=== PATIENT | female | born 2000 | race Caucasian/White ===

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

== ENCOUNTER 2020-03-26 12:16 | Day surgery (SDC) | payer OTHER ==
[~2020-03-26 12:16] MED LIST changes: +Bupivacaine 0.5% 30 ML SDV ONE; +Clindamycin Phosphate in D5W 600 MG in Premix Bag 1 BAG IV ONE; +Midazolam 1 MG/ML 2 ML SDV ONE; +Propofol 200 MG/20 ML SDV ONE; +ceFAZolin 1 GM Vial ONE; +fentaNYL 100 MCG/2 ML SDV ONE
[2020-03-26] MEDS ORDERED: Clindamycin Phosphate in D5W 50 ML ONE (12:35)
--- NOTE | 2020-03-26 12:38 | PCM.PREANE ---
Preanesthetic Assessment - Anesthesia/Transfusion/Family Hx Anesthesia History: Prior Anesthesia Without Reaction Other Type of Anesthesia Reaction Comment: "dad had problems breathing after his gallbladder surgery" Family History of Anesthesia Reaction: No Transfusion History: Prior Transfusion Without Reaction - Review of Systems General: No Symptoms Pulmonary: No Symptoms Cardiovascular: No Symptoms Gastrointestinal: No Symptoms Neurological: No Symptoms Other: Reports: None - Physical Assessment NPO Status Date: 03/25/20 Height: 5 ft 3 in Weight: 117.934 kg ASA Class: 2 Mental Status: Alert & Oriented x3 Airway Class: Mallampati = 3 Dentition: Reports: Normal Dentition ROM/Head Extension: Full Lungs: Clear to Auscultation, Normal Respiratory Effort Cardiovascular: Regular Rate, Regular Rhythm - Lab Values: Laboratory Last Values Urine HCG, Qual NEGATIVE (NEGATIVE) 03/26/20 10:45 SARS-CoV-2 RNA (PAT) NEGATIVE (NEGATIVE) 03/26/20 10:45 - Allergies Allergies/Adverse Reactions: Allergies Allergy/AdvReac Type Severity Reaction Status Date / Time Penicillins Allergy Hives Verified 03/26/20 10:28 - Blood Blood Available: No - Anesthesia Plan Pre-Op Medication Ordered: None - Acknowledgements Anesthesia Type Planned: General Anesthesia Pt an Appropriate Candidate for the Planned Anesthesia: Yes Alternatives and Risks of Anesthesia Discussed w Pt/Guardian: Yes Pt/Guardian Understands and Agrees with Anesthesia Plan: Yes Additional Comments: PMH: mo with bmi of 46, asthma- inactive x 1 yr plan: ga/lma PreAnesthesia Questionnaire - Past Health History Medical/Surgical History: Denies Medical/Surgical History HEENT History: Reports: Impaired Vision Other HEENT History: wears glasses Cardiovascular History: Reports: Arrhythmia, Other (See Below) Other Cardiovascular History: ventricular tachycardia; states had a heart monitor implanted under left breast 2013; states has not had any issues with heart for past 5 years Respiratory History: Reports: Asthma Gastrointestinal History: Reports: None Genitourinary History: Reports: None CORPORATE STRATEGIST History: Reports: Musculoskeletal History: Reports: None Neurological History: Reports: None Psychiatric History: Reports: ADHD Endocrine/Metabolic History: Reports: Obesity/BMI 30+ Hematologic History: Reports: None Immunologic History: Reports: None Oncologic (Cancer) History: Reports: None Dermatologic History: Reports: None - Infectious Disease History Infectious Disease History: Reports: None - Past Surgical History Head Surgeries/Procedures: Reports: None HEENT Surgical History: Reports: Adenoidectomy, Myringotomy w Tube(s), Naso- Sinus Surgery, Tonsillectomy Cardiovascular Surgical History: Reports: Other (See Below) Other Cardiovascular Surgeries/Procedures: implanted heart monitor Respiratory Surgical History: Reports: None GI Surgical History: Reports: None Female Surgical History: Reports: None Endocrine Surgical History: Reports: None Neurological Surgical History: Reports: None Musculoskeletal Surgical History: Reports: None Oncologic Surgical History: Reports: None Dermatological Surgical History: Reports: None - SUBSTANCE USE Tobacco Use Status *Q: Never Tobacco User - HOME MEDS Home Medications: Home Meds medroxyPROGESTERone [Depo-Provera Contraceptive] 1 injection IM ASDIRECTED 04/11/19 [History] Albuterol [Proair HFA] 1 - 2 puff INH ASDIRECTED PRN 09/26/19 [History] Antibiotic Med 1 tab PO Q6HR 03/26/20 [History] - CURRENT (IN HOUSE) MEDS Current Meds: Current Medications Lactated Ringer's (Ringers, Lactated) 1,000 mls @ 125 mls/hr IV ASDIRECTED EITAN Sodium Chloride (Saline Flush) 10 ml FLUSH ASDIRECTED PRN PRN Reason: Keep Vein Open Sodium Chloride (Saline Flush) 2.5 ml FLUSH ASDIRECTED PRN PRN Reason: Keep Vein Open Sodium Chloride (Normal Saline) 10 ml IV ASDIRECTED PRN PRN Reason: IV Use Discontinued Medications Bupivacaine HCl (Marcaine 0.5%) Confirm Administered Dose 30 ml .ROUTE .STK-MED ONE Stop: 03/26/20 11:53 Cefazolin Sodium (Ancef) Confirm Administered Dose 1 gm .ROUTE .STK-MED ONE Stop: 03/26/20 11:52 Fentanyl (Sublimaze) Confirm Administered Dose 100 mcg .ROUTE .STK-MED ONE Stop: 03/26/20 12:04 Clindamycin Phosphate 600 mg/ (Premix) 50 mls @ 100 mls/hr IV ONETIME ONE Stop: 03/26/20 12:07 Acetaminophen (Ofirmev) Confirm Administered Dose 100 mls @ as directed .ROUTE .STK-MED ONE Stop: 03/26/20 12:20 Clindamycin Phosphate (Cleocin In D5w) Confirm Administered Dose 50 mls @ as directed .ROUTE .STK-MED ONE Stop: 03/26/20 12:36 Lidocaine HCl (Xylocaine-Mpf 1%) Confirm Administered Dose 5 ml .ROUTE .STK-MED ONE Stop: 03/26/20 12:05 Midazolam HCl (Versed 1 Mg/Ml) Confirm Administered Dose 2 mg .ROUTE .STK-MED ONE Stop: 03/26/20 12:05 Propofol (Diprivan 20 Ml) Confirm Administered Dose 200 mg .ROUTE .STK-MED ONE Stop: 03/26/20 12:04
[2020-03-26] MEDS ORDERED: Ondansetron 4 MG/2 ML SDV ONE ×2 (13:03)
[2020-03-26] MEDS ORDERED: Dexamethasone 4 MG/ML 5 ML MDV ONE (13:03)
[2020-03-26] MEDS ORDERED: fentaNYL 100 MCG/2 ML SDV ONE (13:06)
[2020-03-26] MEDS ORDERED: EPINEPHrine 1:10,000 1 MG/10 ML Syringe IVPUSH PRN (13:15)
[2020-03-26] MEDS ORDERED: Albuterol 0.083% 2.5 MG/3 ML Neb Soln NEB PRN (13:15)
[2020-03-26] MEDS ORDERED: Naloxone 0.4 MG/ML Syringe IVPUSH PRN (13:15)
[2020-03-26] MEDS ORDERED: Ondansetron 4 MG/2 ML SDV IVPUSH PRN (13:15)
[2020-03-26] MEDS ORDERED: 50% Dextrose in Water 50 ML Syringe IVPUSH PRN (13:15)
[2020-03-26] MEDS ORDERED: Atropine 0.1 MG/ML 10 ML Syringe IVPUSH PRN ×2 (13:15)
[2020-03-26] MEDS ORDERED: fentaNYL 100 MCG/2 ML SDV IVPUSH PRN (13:15)
--- NOTE | 2020-03-26 13:25 | PCM.OPNOTE ---
- General Post-Op/Procedure Note Date of Surgery/Procedure: 03/26/20 Operative Procedure(s): Incision and drainage right breast abscess Findings: 3 x 3 x 3 cm abscess under the right nipple Pre Op Diagnosis: Right breast abscess Post-Op Diagnosis: same Anesthesia Technique: General LMA, Local Primary Surgeon: Vicky Rivas Fluid Replacement, Intraop: 400 EBL in mLs: 5 Condition: Good
[2020-03-26] MEDS: HYDROmorphone 2 MG/ML Syringe IVPUSH PRN ×2 (13:47→13:52)
--- NOTE | 2020-03-26 14:21 | PCM.POSTAN ---
POST ANESTHESIA ASSESSMENT - MENTAL STATUS Mental Status: Alert - VITAL SIGNS Vital Signs: Last Vital Signs Temp 37.2 C 03/26/20 13:19 Pulse 82 03/26/20 13:59 Resp 21 H 03/26/20 13:59 BP 117/81 03/26/20 13:59 Pulse Ox 95 03/26/20 13:59 - RESPIRATORY Respiratory Status: Respiratory Rate WNL - CARDIOVASCULAR CV Status: Pulse Rate WNL - GASTROINTESTINAL GI Status: No Symptoms - POST OP HYDRATION Hydration Status: Adequate & Stable
[2020-03-26] MEDS ORDERED: Acetaminophen/oxyCODONE 325-5 MG Tab PO ONE (14:29)
--- NOTE | 2020-03-26 14:54 | PCM48HPAN ---
Post Anesthesia Note - EVALUATION WITHIN 48HRS OF ANESTHETIC Vital Signs in Normal Range: Yes Patient Participated in Evaluation: Yes Respiratory Function Stable: Yes Airway Patent: Yes Cardiovascular Function Stable: Yes Hydration Status Stable: Yes Pain Control Satisfactory: Yes Nausea and Vomiting Control Satisfactory: Yes Mental Status Recovered: Yes Vital Signs: Last Vital Signs Temp 37.2 C 03/26/20 13:19 Pulse 82 03/26/20 13:59 Resp 21 H 03/26/20 13:59 BP 117/81 03/26/20 13:59 Pulse Ox 95 03/26/20 13:59
[2020-03-26 15:46] VITALS: BP 136/80; PULSE 83
--- NOTE | 2020-03-26 16:01 | OR ---
SURGEON: VICKY RIVAS MD DATE OF PROCEDURE: 03/26/2020 PREOPERATIVE DIAGNOSIS: Right breast abscess. POSTOPERATIVE DIAGNOSIS: Right breast abscess. PROCEDURE PERFORMED: Incision and drainage, right breast abscess. PRIMARY SURGEON: Vicky Rivas MD ANESTHESIA: General LMA, local. FLUIDS: 400 mL of crystalloid. ESTIMATED BLOOD LOSS: 5 mL. FINDINGS: 3 x 3 x 3 cm subareolar abscess. COMPLICATIONS: None. INDICATIONS: The patient presented to my clinic this morning with complaints of a right breast abscess. She has nipple piercings. Tuesday, she developed pain, swelling, and tenderness. She presented to her primary care provider's office yesterday with fever and increasing pain. Ultrasound showed an abscess behind the nipple and an elevated white count. After clinical examination, I explained the need to perform an incision and drainage of this abscess in the operating room given its location. I explained to the patient how I would make an incision along the areolar skin border and tunnel underneath to where the abscess was located. I explained the need for dressing changes afterwards. We discussed the risks including bleeding, infection, or damage to surrounding structures including alteration of sensation to the nipple. She verbalized understanding and wishes to proceed. PROCEDURE IN DETAIL: The patient was brought into the OR and placed on the OR table in supine position. A time-out was completed verifying the patient's name, age, date of , allergies, and procedure to be performed. General LMA anesthesia was induced. The right breast was prepped and draped in usual standard fashion. I anesthetized the inferior areolar border with 0.5% Marcaine plain. I could feel a fluctuant area underneath the nipple. The majority of the swelling appeared to be between the 6 and 9 o'clock position. A 15 blade was used to make an incision along this area. I then used cautery to dissect down to the level of the breast tissue itself. Retractors were then used to lift the areola, and I dissected between the breast tissue and the areola toward the center of the breast. Using an aspiration needle attached to a 30 mL syringe, I aspirated white purulent appearing material directly underneath the nipple. This was sent for wound cultures and Gram stain. I then entered into the abscess cavity itself. A hemostat was used to break up any loculations. I opened up the abscess cavity and irrigated it copiously with normal saline. The wound cavity measured 3 cm in diameter. The wound was then packed with 1 inch iodoform packing strip and covered with 4 x 4 fluffs, which were secured in place using a tape. The patient tolerated the procedure well and was transferred to the PACU in stable condition. All counts were complete and correct at the end of the case. LYSSA SUTHERLAND /[id number]
== END 2020-03-26 15:10 | disposition home or self-care (01) ==
LOC: MW.SDS 12:16
PROVIDERS: ATTEND Surgery
DX: N61.1 Abscess of the breast and nipple (principal); Z01.812 Encounter for preprocedural laboratory examination; Z20.828 Contact with and (suspected) exposure to other viral communicable diseases; Z88.0 Allergy status to penicillin; E66.9 Obesity, unspecified; Z79.899 Other long term (current) drug therapy; Z68.42 Body mass index [BMI] 45.0-49.9, adult
CPT/HCPCS: 19020; 81025; 87070; 87635; A9270; J0131; J1100; J1170; J2001; J2250; J2704; J3490; J7120; 00400; 87077; 87186; J0690; J2405; J3010; U0002

== ENCOUNTER 2021-07-19 18:32 | Emergency (ER) | payer BC ==
[2021-07-19] MEDS ORDERED: Albuterol/Ipratropium 3.0-0.5 MG/3 ML Neb Soln NEB ONE ×3 (19:19)
[2021-07-19] MEDS ORDERED: predniSONE 20 MG Tab PO ONE (19:20)
[2021-07-19] MEDS ORDERED: Doxycycline 100 MG Cap PO STA (20:20)
[2021-07-19] MEDS ORDERED: Amoxicillin/Clavulanate K 875-125 MG Tab PO STA (20:20)
[2021-07-19 20:36] VITALS: BP 135/75; PULSE 82
== END 2021-07-19 20:34 | disposition home or self-care (01) ==
LOC: MW.ED 18:32
DX: J45.901 Unspecified asthma with (acute) exacerbation (principal); J18.9 Pneumonia, unspecified organism; H66.92 Otitis media, unspecified, left ear; E66.9 Obesity, unspecified; Z68.30 Body mass index [BMI] 30.0-30.9, adult; Z88.0 Allergy status to penicillin
CPT/HCPCS: 71045; 99285; A9270; 99284; J7620-GY

== ENCOUNTER 2021-08-20 09:43 | Emergency (ER) | payer BC ==
[2021-08-20] MEDS ORDERED: Sodium Chloride 0.9% 2.5 ML Syringe FLUSH PRN (10:24)
[2021-08-20] MEDS ORDERED: Ondansetron 4 MG/2 ML SDV IVPUSH ONE (10:24)
[2021-08-20] MEDS ORDERED: Sodium Chloride 0.9% 1,000 ML IV ONE (10:24)
[2021-08-20] MEDS ORDERED: Sodium Chloride 0.9% 10 ML Syringe FLUSH PRN (10:24)
[2021-08-20] MEDS ORDERED: HYDROmorphone 1 MG/ML Syringe IVPUSH ONE ×2 (10:25→11:14)
[2021-08-20 11:26] LABS: BLOOD UREA NITROGEN,BUN 11 mg/dL (7.0-18.0); CARBON DIOXIDE,CO2 22.1 mmol/L (21.0-32.0); CHLORIDE,CL 105 mmol/L (98-107); GLUCOSE RANDOM 98 mg/dL (74-106); LIPASE 72 U/L (73-393); POTASSIUM,K 3.6 mmol/L (3.5-5.1); SODIUM,NA 139 mmol/L (136-145)
[2021-08-20] MEDS ORDERED: Iopamidol 755 MG/ML 500 ML Multipack Bottle IVPUSH STA (11:52)
[2021-08-20] MEDS ORDERED: Ketorolac 30 MG/ML SDV IVPUSH ONE (12:03)
[2021-08-20] MEDS ORDERED: Tamsulosin 0.4 MG Cap.ER PO ONE (13:00)
[2021-08-20 13:35] VITALS: BP 142/93; PULSE 92
== END 2021-08-20 13:34 | disposition home or self-care (01) ==
LOC: MW.ED 09:43
DX: N13.2 Hydronephrosis with renal and ureteral calculous obstruction (principal); J45.909 Unspecified asthma, uncomplicated; F17.210 Nicotine dependence, cigarettes, uncomplicated; E66.9 Obesity, unspecified; Z68.41 Body mass index [BMI] 40.0-44.9, adult; Z79.899 Other long term (current) drug therapy; Z88.0 Allergy status to penicillin
CPT/HCPCS: 36415; 74177; 80053; 83690; 84703; 85025; 96374; 96375; 96376; 99284; A9270; J1170; J1885; J2405; J3490; J7030; Q9967

== ENCOUNTER 2023-03-10 22:36 | Emergency (ER) | payer BC ==
[2023-03-10] MEDS ORDERED: Ibuprofen 600 MG Tab PO ONE (22:54)
[2023-03-10] MEDS ORDERED: Cyclobenzaprine 10 MG Tab PO ONE (22:54)
[2023-03-10 22:56] VITALS: BP 143/82; PULSE 89
== END 2023-03-10 23:04 | disposition home or self-care (01) ==
LOC: MW.ED 22:36
DX: S09.90XA Unspecified injury of head, initial encounter (principal); M25.552 Pain in left hip; M79.652 Pain in left thigh; M25.531 Pain in right wrist; M25.532 Pain in left wrist; J45.909 Unspecified asthma, uncomplicated; E66.9 Obesity, unspecified; Z68.41 Body mass index [BMI] 40.0-44.9, adult; Z88.0 Allergy status to penicillin; V49.9XXA Car occupant (driver) (passenger) injured in unspecified traffic accident, initial encounter; Y92.410 Unspecified street and highway as the place of occurrence of the external cause
CPT/HCPCS: 99283; A9270

== ENCOUNTER 2023-12-16 04:25 | Emergency (ER) | payer BC, OTHER ==
[2023-12-16 04:36] VITALS: BP 119/60; PULSE 74
== END 2023-12-16 04:48 | disposition home or self-care (01) ==
LOC: MW.ED 04:25
DX: Z04.1 Encounter for examination and observation following transport accident (principal); E11.9 Type 2 diabetes mellitus without complications; E66.9 Obesity, unspecified; Z79.899 Other long term (current) drug therapy; Z88.1 Allergy status to other antibiotic agents; Z75.8 Other problems related to medical facilities and other health care; V49.50XA Passenger injured in collision with unspecified motor vehicles in traffic accident, initial encounter
CPT/HCPCS: 99281; 99284

== ENCOUNTER 2025-01-06 05:32 | Emergency (ER) | payer BC ==
[2025-01-06 05:50] LABS: BASOPHILS ABSOLUTE AUTO 0.10 K/uL (0.00-0.20); BASOPHILS PERCENT AUTO 0.7 % (0.0-1.0); EOSINOPHILS ABSOLUTE AUTO 0.05 K/uL (0.00-0.45); EOSINOPHILS PERCENT AUTO 0.4 % (0.0-6.0); IMMATURE GRAN ABSOLUTE AUTO 0.10 K/uL (0.00-0.05); IMMATURE GRAN PERCENT AUTO 0.7 % (0.0-0.4); LYMPHOCYTES ABSOLUTE AUTO 2.29 K/uL (1.00-4.80); LYMPHOCYTES PERCENT AUTO 17.1 % (24.0-44.0); MEAN PLATELET VOLUME 9.8 fL (9.4-12.3); MONOCYTES ABSOLUTE AUTO 0.83 K/uL (0.00-0.80); MONOCYTES PERCENT AUTO 6.2 % (0.0-8.0); NEUTROPHILS ABSOLUTE AUTO 10.00 K/uL (1.80-7.70); NEUTROPHILS PERCENT AUTO 74.9 % (41.0-71.0); NRBC ABSOLUTE 0.00 K/uL (0.00-0.02); NRBC PERCENT 0.0 /100WBC (0.0-0.2); PLATELET COUNT,PLT 362 K/uL (150-400); RED BLOOD CELL COUNT 4.70 M/uL (4.10-5.30); WHITE BLOOD CELL COUNT,WBC 13.37 K/uL (3.9-11.3)
[2025-01-06 05:51] LABS: GLUCOSE,URINE NEGATIVE (NEGATIVE); OCCULT BLOOD,URINE TRACE-INTACT (NEGATIVE)
[2025-01-06 05:56] LABS: APPEARANCE,URINE HAZY
[2025-01-06 05:58] LABS: EPITHELIAL CELLS,URINE FEW (NONE-FEW)
[2025-01-06 06:01] LABS: AMPHETAMINES SCREEN, URINE NEGATIVE (CUTOFF=500); BUPRENORPHINE SCREEN,URINE NEGATIVE (CUTOFF=10); METHADONE SCREEN, URINE NEGATIVE (CUTOFF=200); METHAMPHETAMINES SCREEN, URINE NEGATIVE (CUTOFF=500); OXYCODONE SCREEN,URINE NEGATIVE (CUT0FF=100); PCP SCREEN,URINE NEGATIVE (CUTOFF=25); THC SCREEN,URINE 20 NG/ML PRESUMPTIVE POSITIVE (CUTOFF=50)
[2025-01-06] MEDS: Ondansetron 4 MG/2 ML SDV IVPUSH ONE (06:07)
[2025-01-06 06:12] LABS: A/G RATIO 1.0 (0.9-1.6); ALANINE AMINOTRANSFERASE,ALT 49.0 IU/L (14-63); ASPARTATE AMNIOTRANSFERASE,AST 39.0 IU/L (15-37); BILIRUBIN TOTAL 0.3 mg/dL (0.2-1.0); BLOOD UREA NITROGEN,BUN 8.0 mg/dL (7.0-18.0); CARBON DIOXIDE,CO2 22.1 mmol/L (21.0-32.0); CHLORIDE,CL 106.0 mmol/L (98-107); CREATININE 0.9 mg/dL (0.6-1.0); EST CRCL DRUG DOSING (CG) 90.23 mL/min; ESTIMATED GFR 92.0 mL/min (>60); GLUCOSE RANDOM 94.0 mg/dL (74-106); POTASSIUM,K 3.8 mmol/L (3.5-5.1); PROTEIN TOTAL,TP 7.9 g/dL (6.4-8.2); SODIUM,NA 142.0 mmol/L (136-145)
[2025-01-06 09:23] VITALS: BP 126/75; PULSE 71
== END 2025-01-06 09:00 ==
LOC: MW.ED 05:32
DX: S62.612A Displaced fracture of proximal phalanx of right middle finger, initial encounter for closed fracture (principal); S60.221A Contusion of right hand, initial encounter; S00.03XA Contusion of scalp, initial encounter; S09.90XA Unspecified injury of head, initial encounter; F15.90 Other stimulant use, unspecified, uncomplicated; F10.129 Alcohol abuse with intoxication, unspecified; E66.9 Obesity, unspecified; F17.200 Nicotine dependence, unspecified, uncomplicated; Z88.0 Allergy status to penicillin; Z68.38 Body mass index [BMI] 38.0-38.9, adult; W19.XXXA Unspecified fall, initial encounter
CPT/HCPCS: 36415; 70450; 72125; 73090; 73130; 80053; 80305; 80307; 81001; 81025; 85025; 96374; 99285; J2405; 99284